=== PATIENT | male | born 1960 | race Hispanic/Latino ===

== ENCOUNTER 2018-10-28 14:27 | Emergency (ER) | payer MEDICAID | END 2018-10-28 18:18 | disposition home or self-care (01) | LOC: EDH 14:27 | DX: R42 Dizziness and giddiness (principal); R51 Headache; E11.9 Type 2 diabetes mellitus without complications; I10 Essential (primary) hypertension; E78.5 Hyperlipidemia, unspecified; E07.9 Disorder of thyroid, unspecified; Z89.421 Acquired absence of other right toe(s) | CPT/HCPCS: 99281 ==